=== PATIENT | female | born 1950 | race Caucasian/White ===

== ENCOUNTER → 2017-06-19 | Outpatient (CLI) | payer MEDICARE, OTHER ==
--- NOTE | 2017-06-21 10:13 | MM ---
Reason for exam: screening (asymptomatic). Last mammogram was performed 2 years and 2 months ago. History: Patient is postmenopausal. Family history of breast cancer in maternal grandmother. 2 benign cyst aspirations of the left breast, 1992. Physical Findings: A clinical breast exam by your physician is recommended on an annual basis and results should be correlated with mammographic findings. MG 3D Screening Mammo W/Cad Bilateral CC and MLO view(s) were taken. Prior study comparison: April 13, 2015, left breast MG work up mamm w CAD LT. April 08, 2015, bilateral MG screening mammo w CAD. May 30, 2013, bilateral digital screening mammo w/CAD. There are scattered fibroglandular densities. Finding: There is a 6 mm mass in the upper outer quadrant, middle position of the right breast. ASSESSMENT: Incomplete: need additional imaging evaluation, BI-RAD 0 RECOMMENDATION: Follow-up diagnostic mammogram of the right breast. (far borders and true lateral) Ultrasound of the right breast. [facility] will attempt to contact patient to return for supplemental views and ultrasound.
== END | disposition home or self-care (01) ==
LOC: RADMAMWWP 14:05
PROVIDERS: ATTEND Family Medicine
DX: Z12.31 Encounter for screening mammogram for malignant neoplasm of breast (principal)
CPT/HCPCS: 77063; G0202

== ENCOUNTER → 2017-06-28 | Outpatient (CLI) | payer MEDICARE, OTHER ==
--- NOTE | 2017-06-29 08:14 | MM ---
Reason for exam: additional evaluation requested from abnormal screening. Last mammogram was performed less than 1 month ago. History: Patient is postmenopausal. Family history of breast cancer in maternal grandmother. 2 benign cyst aspirations of the left breast, 1992. Physical Findings: Nurse did not find any significant physical abnormalities on exam. MG 3D Work Up W/Cad RT CC, MLO, ML, spot compression CC, and spot compression MLO view(s) were taken of the right breast. Prior study comparison: June 19, 2017, bilateral MG 3d screening mammo w/cad. April 13, 2015, left breast MG work up mamm w CAD LT. There are scattered fibroglandular densities. Finding: There is a 6 mm mass located 7 cm from the nipple in the upper outer quadrant of the right breast. These results were verbally communicated with the patient and result sheet given to the patient on 06/28/17. ASSESSMENT: Incomplete: need additional imaging evaluation, BI-RAD 0 RECOMMENDATION: Ultrasound of the right breast.
--- NOTE | 2017-06-29 08:25 | USB ---
Reason for exam: additional evaluation requested from abnormal screening. History: Patient is postmenopausal. Family history of breast cancer in maternal grandmother. 2 benign cyst aspirations of the left breast, 1992. US Breast Workup Limited RT Right breast ultrasound demonstrates a 0.4 x 0.3 x 0.5cm lesion too small to characterize at 9 o'clock, attention on 6 month follow up, possible complicated cysts, a 0.5 x 0.2 x 0.3cm lesion too small to characterize at 12 o'clock, probably benign represending cysts, a 0.3 x 0.2 x 0.3cm lesion too small to characterize at 11 o'clock, probably benign represending cysts and a 0.2 x 0.2 x 0.3cm lesion too small to characterize at 11 o'clock, probably benign represending cysts. These results were verbally communicated with the patient and result sheet given to the patient on 06/28/17. ASSESSMENT: Probably benign, BI-RAD 3 RECOMMENDATION: Ultrasound of the right breast in 6 months.
== END | disposition home or self-care (01) ==
LOC: RADMAMWWP 14:21
PROVIDERS: ATTEND Family Medicine
DX: R92.8 Other abnormal and inconclusive findings on diagnostic imaging of breast (principal)
CPT/HCPCS: 76642; G0206; G0279

== ENCOUNTER → 2017-12-26 | Outpatient (CLI) | payer MEDICARE, OTHER ==
--- NOTE | 2017-12-27 08:10 | USB ---
Reason for exam: additional evaluation requested from prior study. History: Patient is postmenopausal. Family history of breast cancer in maternal grandmother. 2 benign cyst aspirations of the left breast, 1992. Physical Findings: Nurse did not find any significant physical abnormalities on exam. US Breast RT Right breast ultrasound includes all four quadrants, the retroareolar region and axilla. Finding demonstrates three oval lesions too small to characterize measuring 0.3 x 0.2 x 0.2cm at 12 o'clock, 0.3 x 0.3 x 0.2cm at 12 o'clock and 0.2 x 0.3 x 0.1cm at 4 o'clock. These results were verbally communicated with the patient and result sheet given to the patient on 12/26/17. ASSESSMENT: Probably benign, BI-RAD 3 RECOMMENDATION: Follow-up diagnostic mammogram of both breasts in 6 months. Ultrasound of the right breast in 6 months.
== END | disposition home or self-care (01) ==
LOC: RADUSWWP 14:53
PROVIDERS: ATTEND Family Medicine
DX: R92.8 Other abnormal and inconclusive findings on diagnostic imaging of breast (principal)